=== PATIENT | male | born 1995 | race Caucasian/White ===

== ENCOUNTER 2017-10-10 05:52 | Emergency (ER) | payer OTHER ==
[2017-10-10 06:08] VITALS: BMI 20.6
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
[2017-10-10 08:26] LABS: BASOPHIL 0.5 % (0-2.0); EOSINOPHIL 4.6 % (0-4.5); MCH 30.8 pg (25.7-33.7); MCHC 33.5 g/dl (32.0-35.9); MEAN CELL VOLUME 91.9 fl (80-96); MEAN PLT VOLUME 9.5 fl (7.5-11.1); NEUTROPHILS 48.3 % (42.8-82.8); PLATELET COUNT 176 K/MM3 (134-434); RDW 13.8 % (11.9-15.9); WHITE BLOOD COUNT 7.4 K/mm3 (4.0-10.0)
[2017-10-10 08:51] LABS: ALBUMIN 4.3 g/dl (3.4-5.0); ANION GAP 7 (8-16); BILIRUBIN,TOTAL 0.9 mg/dL (0.2-1.0); CO2 28 mmol/L (21-32); CREATININE 1.1 mg/dL (0.7-1.3); GLUCOSE,RANDOM 77 mg/dL (74-106); SGOT/AST 9 U/L (15-37); SGPT/ALT 17 U/L (12-78)
[2017-10-10 08:52] LABS: ALK PHOS 74 U/L (45-117); TOT PROT 6.6 g/dl (6.4-8.2)
[2017-10-10 10:49] VITALS: TEMP 98.5
[2017-10-10 11:31] VITALS: BP 136/66; PULSE 57
[2017-10-10 11:52] LABS: URINE MARIJUANA THC POSITIVE ng/ml (CUTOFF=50)
--- NOTE | 2017-10-10 12:13 | EKG ---
Test Reason : Blood Pressure : / mmHG Vent. Rate : 062 BPM Atrial Rate : 062 BPM P-R Int : 138 ms QRS Dur : 108 ms QT Int : 428 ms P-R-T Axes : 074 075 057 degrees QTc Int : 434 ms NORMAL SINUS RHYTHM WITH SINUS ARRHYTHMIA RSR' OR QR PATTERN IN V1 SUGGESTS RIGHT VENTRICULAR CONDUCTION DELAY BORDERLINE ECG NO PREVIOUS ECGS AVAILABLE Confirmed by JOELLEN POE, [place] ([id number]) on 10/10/2017 12:13:08 PM Referred By: Confirmed By:AMERICA CUENCA MD
== END 2017-10-10 11:33 | disposition home or self-care (01) ==
LOC: JER 05:52 → SUPCPDRO 05:52 → JER 11:33
DX: F12.920 Cannabis use, unspecified with intoxication, uncomplicated (principal); F13.920 Sedative, hypnotic or anxiolytic use, unspecified with intoxication, uncomplicated; V49.49XA Driver injured in collision with other motor vehicles in traffic accident, initial encounter; Y92.488 Other paved roadways as the place of occurrence of the external cause; Y93.89 Activity, other specified; Y99.8 Other external cause status
CPT/HCPCS: 36415; 70450-TC; 72125-TC; 80053; 80307; 85025; 93005; 93010; 99283-25

== ENCOUNTER 2018-09-16 19:45 | Emergency (ER) | payer OTHER ==
--- NOTE | 2018-09-16 19:49 | PDOC ---
History of Present Illness - History of Present Illness Initial Comments: This patient is a 22 year old male, with h/o marijuana and alcohol use, and presents with left sided pain and intractable vomiting that began today. Patient states that he drank almost and entire bottle of liquor last night and also smoked marijuana. Patient notes that prior to last night he had stopped drinking alcohol for a few weeks. He states that he got home at 7 am and hasnt been able to keep anything down all day. He states that he has had hangovers before but it has never been this bad. He states that he had a headache earlier which has since resolved. He notes some left sided pain that he attributes to the intractable vomiting and states that it travels to his back, and worse with deep inhalation and swallowing. He states that he went to urgent care earlier today but they referred him to the ER. Social Hx: Daily marijuana use. H/o binge drinking. Denies any change in urination. Does report some diarrhea today. ROS General: No fevers or chills, no weakness, no weight loss HEENT: No change in vision. No sore throat, No ear pain Cardiovascular: No chest pain or shortness of breath Respiratory:No cough, or wheezing. Gastrointestinal: +nausea, +vomiting, +diarrhea, no constipation, no rectal bleeding Genitourinary: No dysuria, hematuria, or frequency Musculoskeletal: +left flank pain. No joint pain or swelling Neurologic: +recent headache, no vertigo, dizziness or loss of consciousness Psychiatric: No depression Skin: No rashes or easy bruising Endocrine: No increased thirst or abnormal weight change Allergic: No skin or latex allergy All other systems reviewed and normal PE GENERAL: The patient is awake, alert, and fully oriented. oriented, in no acute distress. HEAD: Normal with no signs of trauma. EYES: Pupils equal, round and reactive to light, extraocular movements intact, sclera anicteric, conjunctiva clear. ABDOMEN: Mild tenderness to left mid flank area. Abdomen - soft, slightly increased bowel sounds. Mild tenderness to LUQ. No guarding or rebound. EXTREMITIES: Normal range of motion, no edema. NEUROLOGICAL: Normal speech, normal gait. PSYCH: Normal mood, normal affect. SKIN: Pale-appearing. Cold, Dry, normal turgor, no rashes or lesions noted. 09/16/18 20:58 09/16/18 21:09 <Brittany Dooley Last Filed: 09/16/18 21:09> - General History Source: Patient Exam Limitations: No Limitations - History of Present Illness Initial Comments: 09/16/18 20:15 A portion of this note was documented by scribe services under my direction. I have reviewed the details of the note, within reason, and agree with the documentation. The case summary and management plan written by me. 09/16/18 20:17 (Assessment and plan: This is a 22-year-old male who comes in complaining of abdominal pain up her left side as well as nausea vomiting which is intractable. Patient drank alcohol heavily and smoked marijuana prior to onset of symptoms. Patient has history of frequent marijuana use and intermittent heavy alcohol use. Patient denies history of similar pain in the past. Patient will be hydrated, given pain medication and labs sent to rule out pancreatitis, rule out renal colic, rule out gastroenteritis, rule out infectious causes. 09/16/18 23:12 Reevaluation: Patient feels much better after pain medication and fluids. Patient tolerating by mouth's. Patient's has a markedly elevated white count of 26,000 however he does not want to be admitted patient initially had a high anion gap of 21 however after 2 L of fluid his labs repeated and is anion gap is now 14. Patient's BUN and creatinine were also improved after IV hydration. His CBC was not repeated however there is no evidence of any infectious process and most likely his elevated white count is secondary to his prolonged vomiting and some dehydration. Patient was given good instructions that if his symptoms worsen, the vomiting returned she develops a fever or increased pain he should return to the ED. <Ana Butler I - Last Filed: 09/16/18 23:27> - General Chief Complaint: Nausea/Vomiting Stated Complaint: NAUSEA, VOMITING Time Seen by Provider: 09/16/18 19:48 Past History <Brittany Dooley - Last Filed: 09/16/18 21:09> - Past Medical History COPD: No - Immunization History Immunization Up to Date: No - Suicide/Smoking/Psychosocial Hx Smoking History: Current some day smoker Have you smoked in the past 12 months: No Hx Alcohol Use: No Drug/Substance Use Hx: No Substance Use Type: Alcohol, Marijuana <Ana Butler I - Last Filed: 09/16/18 23:27> - Past Medical History Allergies/Adverse Reactions: Allergies Allergy/AdvReac Type Severity Reaction Status Date / Time No Known Allergies Allergy Verified 09/16/18 19:50 Home Medications: Ambulatory Orders Ondansetron [Zofran *Odt*] 8 mg SL TID #9 od.tablet 09/16/18 Review of Systems - Review of Systems Comments:: 09/16/18 20:36 see HPI <Brittany Dooley - Last Filed: 09/16/18 21:09> *Physical Exam - Vital Signs Last Vital Signs Temp Pulse Resp BP Pulse Ox 97.7 F 60 18 143/88 100 09/16/18 19:45 09/16/18 19:45 09/16/18 19:45 09/16/18 19:45 09/16/18 19:45 - Physical Exam Comments: 09/16/18 20:36 see HPI <Brittany Dooley - Last Filed: 09/16/18 21:09> ED Treatment Course - LABORATORY CBC & Chemistry Diagram: 09/16/18 20:20 09/16/18 20:20 - Medications Given in the ED: ED Medications Discontinued Medications Generic Name Dose Route Start Last Admin Trade Name Freq PRN Reason Stop Dose Admin Ketorolac Tromethamine 30 mg 09/16/18 20:07 09/16/18 20:20 Toradol Injection - IVPUSH 09/16/18 20:08 30 mg ONCE ONE Administration Ondansetron HCl 8 mg 09/16/18 20:07 09/16/18 20:15 Zofran Injection IVPB 09/16/18 20:08 8 mg ONCE ONE Administration <Brittany Dooley - Last Filed: 09/16/18 21:09> - LABORATORY CBC & Chemistry Diagram: 09/16/18 20:20 09/16/18 22:06 <Ana Butler I - Last Filed: 09/16/18 23:27> *DC/Admit/Observation/Transfer - Attestations Scribe Attestion: 09/16/18 20:36 Documentation prepared by Brittany Dooley, acting as medical laboratory specialist for Ana Butler MD. <Brittany Dooley - Last Filed: 09/16/18 21:09> - Discharge Dispostion Decision to Admit order: No <BriichapisAna Zuñiga I - Last Filed: 09/16/18 23:27> Diagnosis at time of Disposition: Dehydration Nausea & vomiting Qualifiers: Vomiting type: unspecified Vomiting Intractability: non-intractable Qualified Code(s): R11.2 - Nausea with vomiting, unspecified - Discharge Dispostion Disposition: HOME Condition at time of disposition: Stable - Patient Instructions Printed Discharge Instructions: DI for Vomiting -- Adult Additional Instructions: Clear liquids only for the next 6 hours.. For nausea you can take Zofran 1 tablet as often as every 6 hours if needed. I have sent a prescription for the [facility] After that if you have had no further vomiting you may have bananas, rice, applesauce, or toast. If no further vomiting for another 8 hours you may have regular food. If you vomit again then nothing to eat or drink for 2 hours. then start back with the clear liquids. Return to the emergency department immediately with ANY new, persistent or worsening symptoms. If you develop fever, the vomiting returns or U started getting worse please come back to the emergency department.
[2018-09-16 19:54] VITALS: BP 143/88; PULSE 60; TEMP 97.7; BMI 21.1
[2018-09-16] MEDS ORDERED: SODIUM CHLORIDE 1,000 ML IV ONE ×2 (20:07→20:41)
[2018-09-16] MEDS ORDERED: ONDANSETRON 4 MG/2 ML VIAL IVPB ONE (20:07)
[2018-09-16] MEDS ORDERED: KETOROLAC TROMETHAMINE 30 MG/1 ML VIAL IVPUSH ONE (20:07)
[2018-09-16] MEDS ORDERED: KETOROLAC TROMETHAMINE 30 MG/1 ML VIAL ONE (20:11)
[2018-09-16] MEDS ORDERED: ONDANSETRON 4 MG/2 ML VIAL ONE ×2 (20:11→20:14)
[2018-09-16 21:13] LABS: HEMOGLOBIN 17.4 GM/dl (11.7-16.9); MCH 31.4 pg (25.7-33.7); MCHC 32.8 g/dl (32.0-35.9); MEAN CELL VOLUME 95.6 fl (80-96); MEAN PLT VOLUME 10.5 fl (7.5-11.1); PLATELET COUNT 248 K/MM3 (134-434); RBC 5.54 M/mm3 (4.00-5.60); RDW 12.8 % (11.9-15.9)
[2018-09-16 21:19] LABS: ALBUMIN 6.3 g/dl (3.5-5.0); ALK PHOS 88 U/L (32-92); ANION GAP 21 MMOL/L (8-16); BLOOD UREA NITROGEN 24 mg/dl (7-18); CHLORIDE 96 mmol/L (98-107); CO2 20 mmol/L (22-28); CREATININE 1.4 mg/dl (0.6-1.3); GLUCOSE,RANDOM 102 mg/dl (74-106); POTASSIUM 4.6 mmol/L (3.5-5.1); SGOT/AST 47 U/L (10-42); SGPT/ALT 29 U/L (10-40); SODIUM 137 mmol/L (136-145); TOT PROT 9.4 g/dl (6.4-8.3)
[2018-09-16 21:48] LABS: URINE APPEARANCE Slightly; URINE BILIRUBIN 1+ (NEGATIVE); URINE COLOR Yellow; URINE GLUCOSE (UA) Negative (NEGATIVE); URINE KETONE 4+ (NEGATIVE); URINE LEUK ESTERASE Negative (NEGATIVE); URINE NITRITE Negative (NEGATIVE); URINE PROTEIN 2+ (NEGATIVE); URINE UROBILINOGEN 0.2 (0.2-1.0)
[2018-09-16 21:59] LABS: URINE BACTERIA 1+ /hpf (NEGATIVE); URINE RBC 0-2 /hpf (0-3)
[2018-09-16 22:04] LABS: PLATELET ESTIMATE ADEQUATE
[2018-09-16 22:32] LABS: ANION GAP 14 MMOL/L (8-16); BLOOD UREA NITROGEN 22 mg/dl (7-18); CALCIUM 8.7 mg/dl (8.4-10.2); CHLORIDE 102 mmol/L (98-107); CO2 20 mmol/L (22-28); CREATININE 1.3 mg/dl (0.6-1.3); GLUCOSE,RANDOM 78 mg/dl (74-106); POTASSIUM 4.4 mmol/L (3.5-5.1); SODIUM 136 mmol/L (136-145)
[2018-09-16 22:37] LABS: LIPASE 53 U/L (73-393)
== END 2018-09-16 23:31 | disposition home or self-care (01) ==
LOC: FER 19:45
PROC: 3E0333Z Introduction of Anti-inflammatory into Peripheral Vein, Percutaneous Approach (ICD-10-PCS; principal; 2018-09-16)
PROC: 3E033GC Introduction of Other Therapeutic Substance into Peripheral Vein, Percutaneous Approach (ICD-10-PCS; 2018-09-16)
PROC: 3E0337Z Introduction of Electrolytic and Water Balance Substance into Peripheral Vein, Percutaneous Approach (ICD-10-PCS; 2018-09-16)
DX: E86.0 Dehydration (principal); R11.2 Nausea with vomiting, unspecified
CPT/HCPCS: 36415; 74177-TC; 80048; 80053; 81003; 81015; 83690; 85025; 99283-25; J7030

== ENCOUNTER 2019-04-21 17:29 | Emergency (ER) | payer SELFPAY, OTHER | END 2019-04-21 18:10 | disposition home or self-care (01) | LOC: FER 17:29 ==

== ENCOUNTER 2022-10-07 11:37 | Emergency (ER) | payer OTHER ==
[2022-10-07 11:42] VITALS: BP 135/91; PULSE 70; RESP 18; TEMP 97.7; BMI 21.8
== END 2022-10-07 12:22 | disposition home or self-care (01) ==
LOC: FER 11:37
DX: R09.81 Nasal congestion (principal); R51.9 Headache, unspecified; R05.1 Acute cough
CPT/HCPCS: 0241U-QW; 99283-25

== ENCOUNTER 2022-11-09 22:13 | Inpatient (IN) | payer OTHER ==
[2022-11-09 22:58] VITALS: BMI 20.7
[2022-11-09] MEDS ORDERED: hydrOXYzine PAMOATE 25 MG CAPSULE (FP) PO PRN (23:55)
[2022-11-09] MEDS ORDERED: MAG HYDROX/AL HYDROX/SIMETH 30 ML UNIT-DOSE CUP PO PRN (23:55)
[2022-11-09] MEDS ORDERED: IBUPROFEN 600 MG TABLET (FP) PO PRN (23:55)
[2022-11-09] MEDS ORDERED: MAGNESIUM HYDROX 2400MG/30ML ORAL SUSPENSION 30 ML CUP PO PRN (23:55)
[2022-11-09] MEDS ORDERED: NALOXONE HCL (KLOXXADO) 8 MG SPRAY NS PRN (23:55)
[2022-11-09] MEDS ORDERED: IBUPROFEN 400 MG TABLET (FP) PO PRN (23:55)
[2022-11-09] MEDS ORDERED: BENZOCAINE/MENTHOL (CHLORASEPTIC ) LOZENGE MM PRN (23:55)
[2022-11-09] MEDS ORDERED: BISMUTH SUBSALICYLATE 524 MG/30 ML PO PRN (23:55)
[2022-11-09] MEDS ORDERED: NICOTINE POLACRILEX 2 MG GUM BUC PRN (23:55)
[2022-11-09] MEDS ORDERED: guaiFENesin 200 MG/10 ML 10 ML UNIT-DOSE CUPS PO PRN (23:55)
[2022-11-09] MEDS ORDERED: ONDANSETRON *ODT* 4 MG TABLET SL PRN (23:55)
[2022-11-09] MEDS ORDERED: DICYCLOMINE HCL 10 MG CAPSULE PO PRN (23:55)
[2022-11-09] MEDS ORDERED: P-EPHED 60MG/TRIPROLIDI 2.5MG TABLET PO PRN (23:55)
[2022-11-09] MEDS ORDERED: METHOCARBAMOL 500 MG TABLET PO PRN (23:55)
[2022-11-09] MEDS ORDERED: ACETAMINOPHEN 325 MG TABLET (FP) PO PRN ×2 (23:55)
[2022-11-09] MEDS ORDERED: LOPERAMIDE HCL 2 MG CAPSULE PO PRN (23:55)
[2022-11-09] MEDS ORDERED: NALOXONE HCL 0.4 MG/ML VIAL IM PRN (23:55)
[2022-11-09] MEDS ORDERED: POLYETHYLENE GLYCOL (HEALTHYLAX) 3350 17 GM PACKET PO PRN (23:55)
[2022-11-10 09:33] VITALS: BP 110/64; PULSE 68; RESP 18; TEMP 97.2
[2022-11-10] MEDS ORDERED: PRENATAL VITAMINS W/ FOLIC ACID TABLET (FP) PO SCH (10:00)
[2022-11-10 11:48] LABS: HEMATOCRIT 41.3 % (35.4-49); HEMOGLOBIN 13.4 GM/dL (11.7-16.9); MCH 30.5 pg (25.7-33.7); MCHC 32.6 g/dl (32.0-35.9); MEAN CELL VOLUME 93.5 fl (80-96); MEAN PLT VOLUME 10.3 fl (7.5-11.1); PLATELET COUNT 192 10^3/uL (134-434); RBC 4.41 M/mm3 (4.00-5.60); RDW 12.9 % (11.9-15.9)
[2022-11-10 11:53] LABS: ALBUMIN 3.8 g/dl (3.4-5.0); BLOOD UREA NITROGEN 8.7 mg/dL (7-18)
[2022-11-10 11:57] LABS: BILIRUBIN,TOTAL 0.6 mg/dL (0.2-1); TOT PROT 6.2 g/dl (6.4-8.2)
[2022-11-10] MEDS ORDERED: THIAMINE HCL 100 MG TABLET (FP) PO SCH (22:00)
[2022-11-10] MEDS ORDERED: MELATONIN 5 MG TABLETS PO SCH (22:00)
== END 2022-11-10 12:45 | disposition left against medical advice (07) | DRG 770 ==
LOC: YASAS 22:13 → Y6N 23:18
PROVIDERS: ADMIT Allergy & Immunology; ATTEND Surgery
PROC: HZ2ZZZZ Detoxification Services for Substance Abuse Treatment (ICD-10-PCS; principal; 2022-11-09)
DX: F11.20 Opioid dependence, uncomplicated (principal); F12.20 Cannabis dependence, uncomplicated; Z72.0 Tobacco use
CPT/HCPCS: 36415; 80053; 85027; 86780

== ENCOUNTER 2024-06-19 11:17 | Emergency (ER) | payer OTHER ==
[2024-06-19 11:42] VITALS: BP 117/72; PULSE 55; RESP 16; TEMP 97.9; BMI 20.5
[2024-06-19 12:29] LABS: BASO % 0.6 % (0-2.0); HEMOGLOBIN 13.8 GM/dL (11.7-16.9); MCH 31.1 pg (25.7-33.7); MCHC 33.7 g/dl (32.0-35.9); MEAN CELL VOLUME 92.4 fl (80-96); MEAN PLT VOLUME 9.1 fl (7.5-11.1); NEUT % 65.4 % (42.8-82.8); PLATELET COUNT 190 10^3/uL (134-434); RBC 4.43 M/mm3 (4.00-5.60); RDW 13.6 % (11.9-15.9); WHITE BLOOD COUNT 5.1 K/mm3 (4.0-10.0)
[2024-06-19 12:39] LABS: POTASSIUM 4.4 mmol/L (3.5-5.1)
[2024-06-19 12:42] LABS: ALBUMIN 4.4 g/dl (3.4-5.0); CALCIUM 9.4 mg/dL (8.5-10.1)
[2024-06-19 12:45] LABS: CREATININE 0.8 mg/dL (0.55-1.3); PHOSPHOROUS 3.4 mg/dL (2.5-4.9)
[2024-06-19 12:46] LABS: BILIRUBIN,TOTAL 0.6 mg/dL (0.2-1); TOT PROT 7.4 g/dl (6.4-8.2)
[2024-06-19 21:14] LABS: HIV INTERPRETATION NEGATIVE (NEGATIVE)
== END 2024-06-19 12:30 | disposition home or self-care (01) ==
LOC: JERFT 11:17
DX: S51.831A Puncture wound without foreign body of right forearm, initial encounter (principal); W46.0XXA Contact with hypodermic needle, initial encounter; Y92.830 Public park as the place of occurrence of the external cause
CPT/HCPCS: 36415; 80053; 82465; 82977; 84100; 85025; 86704; 86803; 87340; 87389; 87517; 99283-25

== ENCOUNTER 2024-11-07 04:51 | Emergency (ER) | payer OTHER ==
[2024-11-07 05:00] VITALS: BP 134/87; TEMP 98; BMI 17.9
[2024-11-07] MEDS: SODIUM CHLORIDE 0.9% 500 ML INFUS.BAG IV ONE (05:29)
[2024-11-07] MEDS: ONDANSETRON 4 MG/2 ML VIAL IVPUSH ONE (05:29)
[2024-11-07] MEDS ORDERED: chlordiazePOXIDE HCL 25 MG CAPSULE ONE ×2 (05:30→07:21)
[2024-11-07] MEDS ORDERED: BUPRENORPHINE/NALOXONE 8 MG/2 MG FILM PACKET ONE (05:31)
[2024-11-07] MEDS ORDERED: ONDANSETRON 4 MG/2 ML VIAL ONE ×2 (05:31→05:38)
[2024-11-07] MEDS: BUPRENORPHINE 8 MG TAB.SUBL SL ONE (05:33)
[2024-11-07] MEDS: chlordiazePOXIDE HCL 25 MG CAPSULE PO ONE ×2 (05:47→07:24)
[2024-11-07] MEDS: BUPRENORPHINE/NALOXONE 8 MG/2 MG FILM PACKET SL ONE (05:48)
[2024-11-07 06:08] LABS: BASO % 0.2 % (0-2.0); CALCIUM 9.7 mg/dL (8.5-10.1); EOS % 0.3 % (0-4.5); HEMATOCRIT 43.7 % (35.4-49); HEMOGLOBIN 14.4 GM/dL (11.7-16.9); LYMPH % 7.7 % (8-40); MCH 29.9 pg (25.7-33.7); MEAN CELL VOLUME 90.6 fl (80-96); MEAN PLT VOLUME 9.2 fl (7.5-11.1); MONO % 4.6 % (3.8-10.2); NEUT % 87.2 % (42.8-82.8); PLATELET COUNT 280 10^3/uL (134-434); RBC 4.82 M/mm3 (4.00-5.60); RDW 13.4 % (11.9-15.9); WHITE BLOOD COUNT 11.1 K/mm3 (4.0-10.0)
[2024-11-07 06:09] LABS: ALBUMIN 4.8 g/dl (3.4-5.0); BLOOD UREA NITROGEN 10.1 mg/dL (7-18)
[2024-11-07 06:14] LABS: BILIRUBIN,TOTAL 0.9 mg/dL (0.2-1); TOT PROT 7.5 g/dl (6.4-8.2)
[2024-11-07] MEDS ORDERED: ACETAMINOPHEN INJECTION 100 ML ONE (08:34)
[2024-11-07] MEDS: ACETAMINOPHEN 500 MG TABLET (FP) PO ONE ×2 (08:44)
[2024-11-07 08:55] VITALS: PULSE 68; RESP 22
== END 2024-11-07 08:55 ==
LOC: JER 04:51
PROC: 3E033GC Introduction of Other Therapeutic Substance into Peripheral Vein, Percutaneous Approach (ICD-10-PCS; principal; 2024-11-07)
PROC: 3E033GC Introduction of Other Therapeutic Substance into Peripheral Vein, Percutaneous Approach (ICD-10-PCS; 2024-11-07)
DX: F11.13 Opioid abuse with withdrawal (principal); F13.10 Sedative, hypnotic or anxiolytic abuse, uncomplicated; R09.81 Nasal congestion; F41.9 Anxiety disorder, unspecified; R11.0 Nausea; R10.9 Unspecified abdominal pain
CPT/HCPCS: 36415; 80053; 83605; 85025; 93005; 93010; 99284-25